=== PATIENT | female | born 1965 | race African-American/Black ===

== ENCOUNTER 2016-07-09 14:05 | Inpatient (IN) | payer SELFPAY ==
[~2016-07-09 14:05] MED LIST: ACIPHEX20 MG PO; ATENOLOL50 M1 PO; ATENOLOL50 MG PO; CLINDAMYCIN HC300 MG PO; FOLIC ACID0.4 M1 PO; HYDROCODON-ACE1 EACH PO; KEFLEX500 MG PO; MOTRIN600 MG PO; NORCO 5/325 TAB1 TAB PO; OXYCODONE/APAP PO; PEPCID20 MG PO; PREDNISONE20 MG PO; TENORMIN50 M1 PO; TENORMIN50 MG PO; THERAGRAN-M PR1 EAC1 PO; VITAMIN B-1100 M3 PO
[2016-07-09 15:24] LABS: BASO % 0.3 % (0-2); EOS % 0.3 % (0-7); HGB-HEMOGLOBIN 13.9 gm/dl (12.0-15.5); IMMATURE GRANULOCYTES ABSOLUTE 0.01 tho/cmm (0-0.03); IMMATURE GRANULOCYTES PERCENT 0.1 % (0-0.3); LYMPH % 9.8 % (20-45); LYMPH ABSOLUTE COUNT 0.7 tho/cmm (0.8-4.5); MCH (MEAN CORPUSCULAR HGB) 31.9 pg (28.0-32.0); MCHC MEAN CORPUSCULAR HGB CONC 33.9 % (32.0-36.0); MEAN PLATELET VOLUME 10.7 cmc (9.4-12.4); MONO % 7.6 % (0-12); MONOCYTE ABSOLUTE COUNT 0.6 tho/cmm (0.0-1.2); NEUTROPHIL ABSOLUTE COUNT 6.1 tho/cmm (1.6-8.0); NEUTROPHIL-AUTOMATED 6.1 tho/cmm (1.6-8.0); NEUTROPHILS % 81.9 % (40-80); PLATELET COUNT 132 tho/cmm (150-450); RED BLOOD COUNT 4.36 mil/cmm (4.00-5.20); RED CELL DISTRIBUTION WIDTH 14.4 % (12.4-16.4); WHITE BLOOD COUNT 7.5 tho/cmm (4.0-10.0)
[2016-07-09 15:40] LABS: ALB/GLOB RATIO 0.9 (0.8-2.0); ALBUMIN 4.3 g/dl (3.5-5.0); ALKALINE PHOSPHATASE 173 U/L (33-138); ALT/SGPT 52 U/L (12-78); BILIRUBIN,DIRECT 0.2 mg/dl (0.0-0.3); BILIRUBIN,INDIRECT 0.6 mg/dL (0.0-1.0); BILIRUBIN,TOTAL 0.8 mg/dl (0-1.5); BLOOD UREA NITROGEN 9 mg/dl (6-24); CALCIUM 9.8 mg/dl (8.5-10.5); CARBON DIOXIDE-VENOUS 26 mmol/L (22-32); CHLORIDE 102 mmol/l (96-110); CREATININE 0.83 mg/dl (0.50-1.10); GLUCOSE 144 mg/dL (70-110); SODIUM 136 mmol/L (135-145); eGFR VALUE FOR BLACK >60 mL/Min
[2016-07-09 15:41] LABS: ANION GAP 12 mmol/L (0-20); AST/SGOT 125 U/L (10-40); LIPASE 1734 U/L (73-393); POTASSIUM 3.8 mmol/L (3.7-5.1)
[2016-07-09 16:16] LABS: URINE BILIRUBIN NEGATIVE (NEG); URINE BLOOD NEGATIVE (NEG); URINE GLUCOSE (UA) NEGATIVE (NEG); URINE KETONE MODERATE (NEG); URINE LEUKOCYTE ESTERASE POSITIVE (NEG); URINE NITRITE NEGATIVE (NEG); URINE PROTEIN MODERATE (NEG); URINE SPECIFIC GRAVITY 1.025 (1.003-1.030)
[2016-07-09 16:17] LABS: URINE APPEARANCE CLOUDY; URINE COLOR DARK YELLOW
[2016-07-09 16:22] LABS: URINE MUCUS 3+; URINE RBC 0-2 /[HPF] (0-5)
[2016-07-09 19:17] LABS: ALCOHOL (ETOH) <10 mg/dl (<10)
[2016-07-09 19:31] LABS: MAGNESIUM 2.4 mg/dl (1.3-2.6)
[2016-07-10 05:36] LABS: BASO % 0.3 % (0-2); EOS % 1.4 % (0-7); EOSINOPHIL ABSOLUTE COUNT 0.1 tho/cmm (0.0-0.7); HCT-HEMATOCRIT 35.4 % (34.0-49.0); HGB-HEMOGLOBIN 11.4 gm/dl (12.0-15.5); IMMATURE GRANULOCYTES ABSOLUTE 0.01 tho/cmm (0-0.03); IMMATURE GRANULOCYTES PERCENT 0.2 % (0-0.3); LYMPH % 27.8 % (20-45); LYMPH ABSOLUTE COUNT 1.8 tho/cmm (0.8-4.5); MCH (MEAN CORPUSCULAR HGB) 30.7 pg (28.0-32.0); MCHC MEAN CORPUSCULAR HGB CONC 32.2 % (32.0-36.0); MCV (MEAN CELL VOLUME) 95.4 fl (82.0-96.0); MONO % 9.8 % (0-12); MONOCYTE ABSOLUTE COUNT 0.6 tho/cmm (0.0-1.2); NEUTROPHIL ABSOLUTE COUNT 3.9 tho/cmm (1.6-8.0); NEUTROPHIL-AUTOMATED 3.9 tho/cmm (1.6-8.0); NEUTROPHILS % 60.5 % (40-80); PLATELET COUNT 122 tho/cmm (150-450); RED BLOOD COUNT 3.71 mil/cmm (4.00-5.20); RED CELL DISTRIBUTION WIDTH 14.6 % (12.4-16.4); WHITE BLOOD COUNT 6.4 tho/cmm (4.0-10.0)
[2016-07-10 05:47] LABS: PROTHROMBIN TIME 11.5 SECONDS (9.0-13.6)
[2016-07-10 06:30] LABS: ALB/GLOB RATIO 0.8 (0.8-2.0); ALBUMIN 3.3 g/dl (3.5-5.0); ALKALINE PHOSPHATASE 125 U/L (33-138); ALT/SGPT 34 U/L (12-78); AMYLASE 67 U/L (20-90); ANION GAP 13 mmol/L (0-20); BILIRUBIN,TOTAL 0.7 mg/dl (0-1.5); BLOOD UREA NITROGEN 6 mg/dl (6-24); CALCIUM 8.4 mg/dl (8.5-10.5); CARBON DIOXIDE-VENOUS 24 mmol/L (22-32); CHLORIDE 108 mmol/l (96-110); CHOLESTEROL 192 mg/dl (120-200); CREATININE 0.55 mg/dl (0.50-1.10); GLUCOSE 82 mg/dL (70-110); HDL CHOLESTEROL 56 mg/dl (40-60); LDL CHOLESTEROL 111 mg/dl (0-99); MAGNESIUM 2.1 mg/dl (1.3-2.6); POTASSIUM 3.5 mmol/L (3.7-5.1); SODIUM 141 mmol/L (135-145); TRIGLYCERIDES 127 mg/dl (<149); VLDL 25 mg/dl (0-30); eGFR VALUE FOR BLACK >60 mL/Min
[2016-07-10 06:44] LABS: AST/SGOT 62 U/L (10-40); LIPASE 753 U/L (73-393)
[2016-07-11 05:43] LABS: BASO % 0.5 % (0-2); EOS % 1.8 % (0-7); EOSINOPHIL ABSOLUTE COUNT 0.1 tho/cmm (0.0-0.7); HCT-HEMATOCRIT 34.4 % (34.0-49.0); HGB-HEMOGLOBIN 11.2 gm/dl (12.0-15.5); IMMATURE GRANULOCYTES ABSOLUTE 0.03 tho/cmm (0-0.03); IMMATURE GRANULOCYTES PERCENT 0.5 % (0-0.3); LYMPH ABSOLUTE COUNT 1.9 tho/cmm (0.8-4.5); MCH (MEAN CORPUSCULAR HGB) 31.3 pg (28.0-32.0); MCHC MEAN CORPUSCULAR HGB CONC 32.6 % (32.0-36.0); MCV (MEAN CELL VOLUME) 96.1 fl (82.0-96.0); MONO % 11.1 % (0-12); MONOCYTE ABSOLUTE COUNT 0.7 tho/cmm (0.0-1.2); NEUTROPHIL ABSOLUTE COUNT 3.4 tho/cmm (1.6-8.0); NEUTROPHIL-AUTOMATED 3.4 tho/cmm (1.6-8.0); NEUTROPHILS % 55.1 % (40-80); PLATELET COUNT 120 tho/cmm (150-450); RED BLOOD COUNT 3.58 mil/cmm (4.00-5.20); RED CELL DISTRIBUTION WIDTH 14.6 % (12.4-16.4); WHITE BLOOD COUNT 6.1 tho/cmm (4.0-10.0)
[2016-07-11 06:03] LABS: ANION GAP 9 mmol/L (0-20); BLOOD UREA NITROGEN 2 mg/dl (6-24); CALCIUM 8.8 mg/dl (8.5-10.5); CARBON DIOXIDE-VENOUS 29 mmol/L (22-32); CHLORIDE 107 mmol/l (96-110); CREATININE 0.58 mg/dl (0.50-1.10); GLUCOSE 122 mg/dL (70-110); MAGNESIUM 2.2 mg/dl (1.3-2.6); POTASSIUM 3.6 mmol/L (3.7-5.1); SODIUM 141 mmol/L (135-145); eGFR VALUE FOR BLACK >60 mL/Min
[2016-07-11] MEDS ORDERED: CIPRO250 M2 PO (10:07)
[2016-07-11] MEDS ORDERED: NORCO 5-325 TA1 EACH PO (10:08)
[2016-07-11] MEDS ORDERED: CARAFATE1 G2 PO (10:08)
[2016-07-11] MEDS ORDERED: PRILOSEC OTC20 M1 PO (10:09)
[2016-07-11] MEDS ORDERED: MILK OF MAGNESIA PO (10:19)
== END 2016-07-11 11:11 | DRG 391 ==
LOC: EDMED 14:05 → EMR2 17:58 → 5WE 20:10
PROVIDERS: Emergency Medicine; Internal Medicine Cardiovascular Disease; ADMIT Hospitalist
DX: K29.20 Alcoholic gastritis without bleeding (principal); K85.20 Alcohol induced acute pancreatitis without necrosis or infection; D69.6 Thrombocytopenia, unspecified; F10.20 Alcohol dependence, uncomplicated; K21.9 Gastro-esophageal reflux disease without esophagitis; Z91.14 Patient's other noncompliance with medication regimen; I10 Essential (primary) hypertension; F17.210 Nicotine dependence, cigarettes, uncomplicated
CPT/HCPCS: G0480; J1170; J1650; J2270; J2405; J7030

== ENCOUNTER 2016-08-04 13:01 | Inpatient (IN) | payer OTHER ==
[~2016-08-04 13:01] MED LIST changes: +CARAFATE1 G2 PO; +CIPRO250 M2 PO; +MILK OF MAGNESIA PO; +NORCO 5-325 TA1 EACH PO; +PRILOSEC OTC20 M1 PO
[2016-08-04 13:38] LABS: URINE BILIRUBIN MODERATE (NEG); URINE BLOOD SMALL (NEG); URINE GLUCOSE (UA) SMALL (NEG); URINE KETONE SMALL (NEG); URINE LEUKOCYTE ESTERASE POSITIVE (NEG); URINE NITRITE POSITIVE (NEG); URINE PROTEIN MODERATE (NEG); URINE SPECIFIC GRAVITY 1.025 (1.003-1.030)
[2016-08-04 13:39] LABS: URINE APPEARANCE HAZY; URINE COLOR DARK YELLOW
[2016-08-04 13:48] LABS: URINE MUCUS 2+
[2016-08-04 15:17] LABS: BASO % 0.2 % (0-2); EOS % 1.2 % (0-7); EOSINOPHIL ABSOLUTE COUNT 0.1 tho/cmm (0.0-0.7); HCT-HEMATOCRIT 42.4 % (34.0-49.0); HGB-HEMOGLOBIN 14.2 gm/dl (12.0-15.5); IMMATURE GRANULOCYTES ABSOLUTE 0.02 tho/cmm (0-0.03); IMMATURE GRANULOCYTES PERCENT 0.2 % (0-0.3); LYMPH % 12.3 % (20-45); LYMPH ABSOLUTE COUNT 1.3 tho/cmm (0.8-4.5); MCH (MEAN CORPUSCULAR HGB) 31.1 pg (28.0-32.0); MCHC MEAN CORPUSCULAR HGB CONC 33.5 % (32.0-36.0); MCV (MEAN CELL VOLUME) 92.8 fl (82.0-96.0); MEAN PLATELET VOLUME 10.8 cmc (9.4-12.4); MONO % 4.9 % (0-12); MONOCYTE ABSOLUTE COUNT 0.5 tho/cmm (0.0-1.2); NEUTROPHIL ABSOLUTE COUNT 8.6 tho/cmm (1.6-8.0); NEUTROPHIL-AUTOMATED 8.6 tho/cmm (1.6-8.0); NEUTROPHILS % 81.2 % (40-80); PLATELET COUNT 165 tho/cmm (150-450); RED BLOOD COUNT 4.57 mil/cmm (4.00-5.20); RED CELL DISTRIBUTION WIDTH 13.3 % (12.4-16.4); WHITE BLOOD COUNT 10.6 tho/cmm (4.0-10.0)
[2016-08-04 15:30] LABS: ALB/GLOB RATIO 0.8 (0.8-2.0); ALKALINE PHOSPHATASE 141 U/L (33-138); ALT/SGPT 18 U/L (12-78); ANION GAP 10 mmol/L (0-20); AST/SGOT 31 U/L (10-40); BILIRUBIN,TOTAL 0.8 mg/dl (0-1.5); BLOOD UREA NITROGEN 9 mg/dl (6-24); CALCIUM 9.4 mg/dl (8.5-10.5); CARBON DIOXIDE-VENOUS 30 mmol/L (22-32); CHLORIDE 102 mmol/l (96-110); CREATININE 0.69 mg/dl (0.50-1.10); GLUCOSE 112 mg/dL (70-110); POTASSIUM 3.3 mmol/L (3.7-5.1); SODIUM 139 mmol/L (135-145); eGFR VALUE FOR BLACK >90 mL/Min
[2016-08-04 15:32] LABS: LIPASE 2481 U/L (73-393)
[2016-08-04 15:59] LABS: ACETAMINOPHEN LEVEL <10 ug/ml (10-30); ALCOHOL (ETOH) <10 mg/dl (<10); SALICYLATE <3 mg/dl (2.8-20)
[2016-08-05 06:28] LABS: ALBUMIN 3.3 g/dl (3.5-5.0); ALT/SGPT 14 U/L (12-78); AMYLASE 80 U/L (20-90); ANION GAP 14 mmol/L (0-20); AST/SGOT 21 U/L (10-40); BLOOD UREA NITROGEN 6 mg/dl (6-24); CALCIUM 8.7 mg/dl (8.5-10.5); CARBON DIOXIDE-VENOUS 23 mmol/L (22-32); CHLORIDE 105 mmol/l (96-110); CREATININE 0.48 mg/dl (0.50-1.10); GLUCOSE 74 mg/dL (70-110); POTASSIUM 3.2 mmol/L (3.7-5.1); SODIUM 139 mmol/L (135-145); eGFR VALUE FOR BLACK >90 mL/Min
[2016-08-05 06:29] LABS: BASO % 0.2 % (0-2); EOS % 1.9 % (0-7); EOSINOPHIL ABSOLUTE COUNT 0.2 tho/cmm (0.0-0.7); HCT-HEMATOCRIT 38.1 % (34.0-49.0); HGB-HEMOGLOBIN 12.6 gm/dl (12.0-15.5); IMMATURE GRANULOCYTES ABSOLUTE 0.02 tho/cmm (0-0.03); IMMATURE GRANULOCYTES PERCENT 0.2 % (0-0.3); LYMPH % 15.3 % (20-45); LYMPH ABSOLUTE COUNT 1.9 tho/cmm (0.8-4.5); MCH (MEAN CORPUSCULAR HGB) 30.7 pg (28.0-32.0); MCHC MEAN CORPUSCULAR HGB CONC 33.1 % (32.0-36.0); MCV (MEAN CELL VOLUME) 92.9 fl (82.0-96.0); MEAN PLATELET VOLUME 11.1 cmc (9.4-12.4); MONO % 5.9 % (0-12); MONOCYTE ABSOLUTE COUNT 0.7 tho/cmm (0.0-1.2); NEUTROPHIL ABSOLUTE COUNT 9.5 tho/cmm (1.6-8.0); NEUTROPHIL-AUTOMATED 9.5 tho/cmm (1.6-8.0); NEUTROPHILS % 76.5 % (40-80); PLATELET COUNT 141 tho/cmm (150-450); RED CELL DISTRIBUTION WIDTH 13.4 % (12.4-16.4); WHITE BLOOD COUNT 12.4 tho/cmm (4.0-10.0)
[2016-08-05 06:30] LABS: ALB/GLOB RATIO 0.8 (0.8-2.0); ALKALINE PHOSPHATASE 110 U/L (33-138); BILIRUBIN,TOTAL 0.6 mg/dl (0-1.5); LIPASE 1190 U/L (73-393)
[2016-08-05] MEDS ORDERED: NORCO 5-325 TA1 EACH PO (18:02)
== END 2016-08-05 18:08 | DRG 440 ==
LOC: EDMED 13:01 → EMR2 17:24 → 5WE 19:20
PROVIDERS: Emergency Medicine; Internal Medicine; Nurse Practitioner Family; ADMIT Hospitalist
DX: K85.90 Acute pancreatitis without necrosis or infection, unspecified (principal); K76.0 Fatty (change of) liver, not elsewhere classified; I10 Essential (primary) hypertension; K21.9 Gastro-esophageal reflux disease without esophagitis; Z91.19 Patient's noncompliance with other medical treatment and regimen; F10.10 Alcohol abuse, uncomplicated; F17.210 Nicotine dependence, cigarettes, uncomplicated; Z98.51 Tubal ligation status
CPT/HCPCS: G0480; J0360; J2270; J3480; J7030; Q9967